=== PATIENT | female | born 1990 | race Caucasian/White ===

== ENCOUNTER → 2021-04-06 | Outpatient (CLI) | payer OTHER ==
[~2021-04-06] MED LIST: ALBU90OI; ALBU90OI INH; ALBU90OI6 INH; ALBU90OI61 INH; BUDE10.22 IH; BUDE6HFA INH; CRUTCH3 USE; DIPH50 PO; FLUSAL1005 IH; HYDACE5 PO; NYQUIL; PRED10 PO; PRED20 PO; PSEU30; RXPROCODSY PO; SULTRIDS PO; TIOT18; Ventolin/Prove6.7 GM INH; [UNRECOGNIZED DRUG - OTHER]
[2021-04-06 11:37] LABS: BASOPHILS ABSOLUTE AUTO 0.02 K/mm3 (0.00-0.23); BASOPHILS PERCENT AUTO 0 % (0-2); EOSINOPHILS ABSOLUTE AUTO 0.01 K/mm3 (0.00-0.68); EOSINOPHILS PERCENT AUTO 0 % (0-6); Hematocrit 37.7 % (33.0-51.0); Hemoglobin 13.1 g/dL (11.5-16.0); IMMATURE GRAN ABSOLUTE AUTO 0.04 K/mm3 (0.00-0.10); IMMATURE GRAN PERCENT AUTO 0 % (0-1); LYMPHOCYTES PERCENT AUTO 5 % (21-46); MONOCYTES ABSOLUTE AUTO 0.71 K/mm3 (0.16-1.47); MONOCYTES PERCENT AUTO 6 % (4-13); Mean Corpuscular HGB 31.4 pg (26.0-34.0); Mean Corpuscular HGB Conc 34.7 g/dL (31.5-36.5); Mean Corpuscular Volume 90 fL (80-100); Mean Platelet Volume 10.5 fL (9.1-12.4); NEUTROPHILS ABSOLUTE AUTO 9.79 K/mm3 (1.96-9.15); NEUTROPHILS PERCENT AUTO 88 % (41-73); Platelet Count 217 K/mm3 (150-400); RDW Coefficient Variation 11.7 % (11.7-14.2); RDW Standard Deviation 38.7 fL (35.1-46.3); Red Blood Cell Count 4.17 M/mm3 (3.80-5.20); White Blood Cell Count 11.07 K/mm3 (4.00-11.30)
[2021-04-06 11:49] LABS: Alanine Aminotransfer (ALT/SGP 18 U/L (12-78); Albumin, Blood 3.4 g/dL (3.4-5.0); Albumin/Globulin Ratio 0.9 (0.8-1.8); Alk Phos 65 U/L (40-126); Amylase, Blood 42 U/L (25-115); Anion Gap 9 mmol/L (6-16); Aspartate Aminotrans (AST/SGOT 13 U/L (12-37); Bilirubin, Total 0.5 mg/dL (0.1-1.0); Blood Urea Nitrogen 11 mg/dL (8-24); Bun/Creatinine Ratio 17.7 (12.0-20.0); CO2, Blood 24 mmol/L (21-32); Calcium, Blood 8.7 mg/dL (8.5-10.1); Chloride, Blood 101 mmol/L (98-108); Creatinine, Blood 0.62 mg/dL (0.40-1.00); Globulin, Blood 3.9 g/dL (2.2-4.0); Glomerular Filtration Rate >60 (60-); Glucose, Blood 92 mg/dL (70-99); Potassium, Blood 3.7 mmol/L (3.5-5.5); Sodium, Blood 134 mmol/L (136-145); Total Protein, Blood 7.3 g/dL (6.4-8.2)
== END | disposition home or self-care (01) ==
LOC: LAB SHORT 11:33 → LAB 11:33
PROVIDERS: General Practice
DX: Z33.1 Pregnant state, incidental (principal)
CPT/HCPCS: 80053; 82150; 85025

== ENCOUNTER 2021-10-21 15:55 | Inpatient (IN) | payer OTHER ==
[~2021-10-21] VITALS: Ht 167.6 cm; Wt 80.0 kg
[2021-10-21 16:39] LABS: BASOPHILS ABSOLUTE AUTO 0.04 K/mm3 (0.00-0.23); BASOPHILS PERCENT AUTO 0 % (0-2); EOSINOPHILS ABSOLUTE AUTO 0.06 K/mm3 (0.00-0.68); EOSINOPHILS PERCENT AUTO 1 % (0-6); Hematocrit 34.9 % (33.0-51.0); IMMATURE GRAN ABSOLUTE AUTO 0.08 K/mm3 (0.00-0.10); IMMATURE GRAN PERCENT AUTO 1 % (0-1); LYMPHOCYTES ABSOLUTE AUTO 1.93 K/mm3 (0.84-5.20); LYMPHOCYTES PERCENT AUTO 17 % (21-46); MONOCYTES ABSOLUTE AUTO 1.24 K/mm3 (0.16-1.47); MONOCYTES PERCENT AUTO 11 % (4-13); Mean Corpuscular HGB 31.5 pg (26.0-34.0); Mean Corpuscular HGB Conc 34.4 g/dL (31.5-36.5); Mean Corpuscular Volume 92 fL (80-100); Mean Platelet Volume 11.9 fL (9.1-12.4); NEUTROPHILS ABSOLUTE AUTO 8.02 K/mm3 (1.96-9.15); NEUTROPHILS PERCENT AUTO 71 % (41-73); Platelet Count 217 K/mm3 (150-400); RDW Standard Deviation 40.4 fL (35.1-46.3); Red Blood Cell Count 3.81 M/mm3 (3.80-5.20); White Blood Cell Count 11.37 K/mm3 (4.00-11.30)
[2021-10-21] MEDS ORDERED: ZINC15 (17:51)
[2021-10-21] MEDS ORDERED: FOLIVANE-OB CA1 EACH (17:51)
[2021-10-23 05:27] LABS: Hematocrit 33.5 % (33.0-51.0); Hemoglobin 11.2 g/dL (11.5-16.0); Mean Corpuscular HGB 31.2 pg (26.0-34.0); Mean Corpuscular HGB Conc 33.4 g/dL (31.5-36.5); Mean Corpuscular Volume 93 fL (80-100); Platelet Count 204 K/mm3 (150-400); RDW Coefficient Variation 12.1 % (11.7-14.2); RDW Standard Deviation 41.4 fL (35.1-46.3); Red Blood Cell Count 3.59 M/mm3 (3.80-5.20); White Blood Cell Count 16.57 K/mm3 (4.00-11.30)
[2021-10-23] MEDS ORDERED: IBUP800 PO (13:46)
== END 2021-10-23 16:18 | disposition home or self-care (01) | DRG 805 ==
LOC: OBS 15:55 → BC 15:55 → OBS 16:18 → BC 16:23
PROVIDERS: ADMIT Nurse Practitioner Obstetrics & Gynecology
PROC: 10E0XZZ Delivery of Products of Conception, External Approach (ICD-10-PCS; principal; 2021-10-22)
PROC: 3E033VJ Introduction of Other Hormone into Peripheral Vein, Percutaneous Approach (ICD-10-PCS; 2021-10-22)
PROC: 3E0R3BZ Introduction of Anesthetic Agent into Spinal Canal, Percutaneous Approach (ICD-10-PCS; 2021-10-22)
PROC: 00HU33Z Insertion of Infusion Device into Spinal Canal, Percutaneous Approach (ICD-10-PCS; 2021-10-22)
DX: O26.62 Liver and biliary tract disorders in childbirth (principal); K83.1 Obstruction of bile duct; Z37.0 Single live birth; Z3A.38 38 weeks gestation of pregnancy; O99.824 Streptococcus B carrier state complicating childbirth; Z98.890 Other specified postprocedural states; Z88.1 Allergy status to other antibiotic agents; Z28.21 Immunization not carried out because of patient refusal; Z88.0 Allergy status to penicillin; Z88.8 Allergy status to other drugs, medicaments and biological substances; Z79.899 Other long term (current) drug therapy
CPT/HCPCS: 36415; 51702; 85025; 85027; 86850; 86900; 86901; A9270; J0696; J1885; J2001; J2590; J3010; J3370; J7050; J7120

== ENCOUNTER 2024-05-25 06:45 | Inpatient (IN) | payer OTHER ==
[~2024-05-25] VITALS: Ht 167.6 cm; Wt 87.9 kg
[2024-05-25] VITALS (29 sets, daily range): BP systolic 106–140; BP diastolic 52–84
[~2024-05-25 06:45] MED LIST changes: +FOLIVANE-OB CA1 EACH; +IBUP800 PO; +ZINC15
[2024-05-25] MEDS ORDERED: Lactated Ringer's 1,000 ML IV SCH ×4 (07:25→15:55)
[2024-05-25] MEDS ORDERED: OXYTOCIN/RINGER'S LACTATE 500 ML IV SCH ×2 (07:25→15:50)
[2024-05-25] MEDS ORDERED: Lactated Ringer's 1,000 ML IV PRN ×3 (07:30→11:05)
[2024-05-25] MEDS ORDERED: Misoprostol 200 MCG Tab BC PRN ×2 (07:30→16:05)
[2024-05-25] MEDS ORDERED: Carboprost Tromethamine 250 MCG/ML 1ML Amp IM PRN (07:30)
[2024-05-25] MEDS ORDERED: Methylergonovine Maleate 0.2MG / ML 1ML Amp IM PRN ×2 (07:30→15:55)
[2024-05-25] MEDS ORDERED: FentaNYL 2mcg/ml-Bup 0.1% Epd 250 ML EPI PRN (07:30)
[2024-05-25] MEDS ORDERED: Oxytocin 10 Unit / ML Vial IM PRN (07:30)
[2024-05-25] MEDS ORDERED: ePHEDrine Sulfate 50 MG/ML 1ML Injection XX PRN (07:30)
[2024-05-25] MEDS ORDERED: Ondansetron HCl 2 MG / ML 2ML Vial IV PRN ×2 (07:30→09:20)
[2024-05-25] MEDS ORDERED: Tranexamic Acid 100 ML IV SCH (07:30)
[2024-05-25] MEDS ORDERED: Acetaminophen 500 MG Tab PO PRN (07:30)
[2024-05-25] MEDS ORDERED: OXYTOCIN/RINGER'S LACTATE 500 ML IV PRN (07:30)
[2024-05-25] MEDS ORDERED: Calcium Carbonate 500 MG Tab Chew PO SCH (07:30)
[2024-05-25] MEDS ORDERED: Misoprostol 200 MCG Tab PR PRN (07:30)
[2024-05-25 08:15] LABS: BASOPHILS ABSOLUTE AUTO 0.07 K/mm3 (0.00-0.23); BASOPHILS PERCENT AUTO 1 % (0-2); EOSINOPHILS ABSOLUTE AUTO 0.29 K/mm3 (0.00-0.68); EOSINOPHILS PERCENT AUTO 2 % (0-6); Hematocrit 38.1 % (33.0-51.0); IMMATURE GRAN ABSOLUTE AUTO 0.09 K/mm3 (0.00-0.10); IMMATURE GRAN PERCENT AUTO 1 % (0-1); LYMPHOCYTES ABSOLUTE AUTO 1.78 K/mm3 (0.84-5.20); LYMPHOCYTES PERCENT AUTO 13 % (21-46); MONOCYTES ABSOLUTE AUTO 1.46 K/mm3 (0.16-1.47); MONOCYTES PERCENT AUTO 10 % (4-13); Mean Corpuscular HGB 30.9 pg (26.0-34.0); Mean Corpuscular HGB Conc 34.1 g/dL (31.5-36.5); Mean Corpuscular Volume 91 fL (80-100); Mean Platelet Volume 11.2 fL (9.1-12.4); NEUTROPHILS ABSOLUTE AUTO 10.59 K/mm3 (1.96-9.15); NEUTROPHILS PERCENT AUTO 74 % (41-73); Platelet Count 252 K/mm3 (150-400); RDW Coefficient Variation 12.9 % (11.7-14.2); Red Blood Cell Count 4.21 M/mm3 (3.80-5.20); White Blood Cell Count 14.28 K/mm3 (4.00-11.30)
[2024-05-25] MEDS ORDERED: CefTRIAXone Sodium 2,000 MG in NS 100 ML IV ONE (08:30)
[2024-05-25] MEDS ORDERED: CeFAZolin Sodium 2,000 MG in NS 100 ML IV ONE (08:55)
[2024-05-25] MEDS ORDERED: Acetaminophen 325 MG TABLET PO PRN ×2 (09:20→15:50)
[2024-05-25] MEDS ORDERED: Calcium Carbonate 500 MG Tab Chew PO PRN (09:20)
[2024-05-25] MEDS ORDERED: FentaNYL Citrate 50 MCG/ML 2 ML Injection IV PRN (09:20)
[2024-05-25] MEDS ORDERED: Witch Hazel/Glycerin PADS TOP PRN (15:50)
[2024-05-25] MEDS ORDERED: Docusate Sodium 100 MG Cap PO PRN (15:50)
[2024-05-25] MEDS ORDERED: Ibuprofen 400 MG Tab PO PRN (15:50)
[2024-05-25] MEDS ORDERED: Benzocaine Topical Anesthetic Spray 60GM TOP PRN (15:50)
[2024-05-25] MEDS ORDERED: Lanolin Cream TOP PRN (15:50)
[2024-05-25] MEDS ORDERED: Ketorolac Tromethamine 30mg Vial IV PRN (15:55)
[2024-05-25] MEDS ORDERED: CefTRIAXone Sodium 1,000 MG in NS 50 ML IV SCH (16:00)
[2024-05-25] MEDS ORDERED: CeFAZolin Sodium 1,000 MG in NS 50 ML IV SCH (17:00)
[2024-05-25] MEDS ORDERED: CeFAZolin 1000MG in D5W 50 ML IV SCH (17:00)
[2024-05-26] VITALS: BP 113/62
[2024-05-26 05:14] VITALS: BP 108/56
[2024-05-26 07:20] VITALS: BP 103/59
[2024-05-26] MEDS ORDERED: Prenatal Vit/FE Fumarate/FA 1 Tab PO SCH (09:00)
[2024-05-26 12:45] VITALS: BP 115/62
[2024-05-26] MEDS ORDERED: IBUP400 PO (12:48)
[2024-05-26] MEDS ORDERED: DOCU100 PO (12:48)
[2024-05-26] MEDS ORDERED: PRENATAL TABLE1 EAC2 PO (12:48)
[2024-05-26] MEDS ORDERED: ACET500 PO (12:48)
--- NOTE | 2024-05-26 17:13 | NUR ---
DISCHARGE TEACHING COMPLETED, REWVIEWED WRITTEN INSTRUCTIONS AND FOLLOW UP APPOINTMENT, PT VERBALIZED UNDERSTANDING AND IS CARING FOR SELF AND NB WELL
--- NOTE | 2024-05-26 17:24 | NUR ---
discharged to home with tasia
== END 2024-05-26 17:20 | disposition home or self-care (01) | DRG 807 ==
LOC: OBS 06:45 → BC 06:46 → OBS 06:54 → BC 07:02
PROVIDERS: ADMIT Advanced Practice Midwife
PROC: 10E0XZZ Delivery of Products of Conception, External Approach (ICD-10-PCS; principal; 2024-05-25)
PROC: 3E0R3BZ Introduction of Anesthetic Agent into Spinal Canal, Percutaneous Approach (ICD-10-PCS; 2024-05-25)
PROC: 00HU33Z Insertion of Infusion Device into Spinal Canal, Percutaneous Approach (ICD-10-PCS; 2024-05-25)
DX: O99.344 Other mental disorders complicating childbirth (principal); Z37.0 Single live birth; Z3A.39 39 weeks gestation of pregnancy; O99.52 Diseases of the respiratory system complicating childbirth; J45.909 Unspecified asthma, uncomplicated; O99.824 Streptococcus B carrier state complicating childbirth; F41.8 Other specified anxiety disorders; O35.19X0 Maternal care for (suspected) chromosomal abnormality in fetus, other chromosomal abnormality, not applicable or unspecified; Z98.890 Other specified postprocedural states; Z88.1 Allergy status to other antibiotic agents; Z88.0 Allergy status to penicillin; Z88.8 Allergy status to other drugs, medicaments and biological substances; Z79.899 Other long term (current) drug therapy
CPT/HCPCS: 36415; 51702; 85025; 85460; 86850; 86900; 86901; A9270; J0690; J1885; J2405; J2590; J7120